=== PATIENT | female | born 2000 | race Two or more races ===

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

== ENCOUNTER 2020-08-05 18:28 | Emergency (ER) | payer OTHER ==
[~2020-08-05] VITALS: Ht 160 cm; Wt 51.3 kg
[2020-08-05] MEDS ORDERED: PEPCID AC20 MG PO (22:05)
== END 2020-08-05 22:25 | disposition home or self-care (01) ==
LOC: EMR PED 18:28
DX: B34.9 Viral infection, unspecified (principal)

== ENCOUNTER 2020-11-08 21:40 | Emergency (ER) | payer OTHER ==
[~2020-11-08] VITALS: Ht 160 cm; Wt 50.3 kg
[~2020-11-08 21:40] MED LIST changes: +PEPCID AC20 MG PO
== END 2020-11-09 00:29 | disposition home or self-care (01) ==
LOC: ER 21:40
DX: R07.89 Other chest pain (principal)

== ENCOUNTER 2021-01-12 19:09 | Emergency (ER) | payer OTHER ==
[~2021-01-12] VITALS: Ht 160 cm; Wt 53.5 kg
[2021-01-12] MEDS ORDERED: ZITHROMAX500 MG PO (20:50)
[2021-01-12] MEDS ORDERED: TUSICOF CAPLET1 EACH PO (20:50)
== END 2021-01-12 21:18 | disposition home or self-care (01) ==
LOC: ER 19:09 → EMR PED 19:09
DX: J06.9 Acute upper respiratory infection, unspecified (principal); Z20.822 Contact with and (suspected) exposure to COVID-19

== ENCOUNTER 2021-03-30 16:14 | Emergency (ER) | payer OTHER ==
[~2021-03-30] VITALS: Ht 160 cm; Wt 54.0 kg
[~2021-03-30 16:14] MED LIST changes: +TUSICOF CAPLET1 EACH PO; +ZITHROMAX500 MG PO
== END 2021-03-30 22:03 | disposition home or self-care (01) ==
LOC: EMR PED 16:14
DX: J32.8 Other chronic sinusitis (principal); R07.89 Other chest pain; J98.8 Other specified respiratory disorders; R51.9 Headache, unspecified; Z11.52 Encounter for screening for COVID-19

== ENCOUNTER 2021-05-17 20:43 | Emergency (ER) | payer OTHER ==
[~2021-05-17] VITALS: Ht 160 cm; Wt 54.0 kg
[2021-05-17] MEDS ORDERED: ZITHROMAX500 MG PO (22:28)
[2021-05-17] MEDS ORDERED: ALLERGY RELIE15.8 ML NASAL (22:28)
== END 2021-05-17 22:45 | disposition home or self-care (01) ==
LOC: ER 20:43 → EMR PED 20:58
DX: R04.0 Epistaxis (principal); J06.9 Acute upper respiratory infection, unspecified; J01.00 Acute maxillary sinusitis, unspecified

== ENCOUNTER 2021-11-15 23:19 | Emergency (ER) | payer OTHER ==
[~2021-11-15] VITALS: Ht 160 cm; Wt 54.9 kg
[~2021-11-15 23:19] MED LIST changes: +ALLERGY RELIE15.8 ML NASAL
[2021-11-16] MEDS ORDERED: KETO10TA2 PO (02:30)
== END 2021-11-16 02:46 | disposition home or self-care (01) ==
LOC: ER 23:19
DX: M94.0 Chondrocostal junction syndrome [Tietze] (principal)

== ENCOUNTER 2021-12-07 03:03 | Emergency (ER) | payer OTHER ==
[~2021-12-07] VITALS: Ht 160 cm; Wt 55.8 kg
[~2021-12-07 03:03] MED LIST changes: +KETO10TA2 PO
== END 2021-12-07 09:13 | disposition home or self-care (01) ==
LOC: ER 03:03
DX: O21.9 Vomiting of pregnancy, unspecified (principal); Z3A.00 Weeks of gestation of pregnancy not specified

== ENCOUNTER 2022-02-06 05:30 | Emergency (ER) | payer OTHER ==
[~2022-02-06] VITALS: Ht 160 cm; Wt 54.9 kg
== END 2022-02-06 10:37 | disposition home or self-care (01) ==
LOC: ER 05:30
DX: N93.9 Abnormal uterine and vaginal bleeding, unspecified (principal); J45.909 Unspecified asthma, uncomplicated; L30.8 Other specified dermatitis; Z91.013 Allergy to seafood

== ENCOUNTER 2022-03-28 12:14 | Inpatient (IN) | payer OTHER ==
[~2022-03-28] VITALS: Ht 160 cm; Wt 58.1 kg
[2022-03-28] MEDS ORDERED: MEDROLPACK PO (18:58)
[2022-03-28] MEDS ORDERED: ZITHROMAX500 MG PO (18:58)
[2022-03-28] MEDS ORDERED: FLONASE ALLERG9.9 ML NASAL (18:58)
== END 2022-04-01 18:33 | disposition home or self-care (01) | DRG 203 ==
LOC: ER 12:14 → SEC-K 03-29 07:53 → MEDI 03-29 07:53
PROVIDERS: ADMIT Internal Medicine; ATTEND Internal Medicine
PROC: 4A12X4Z Monitoring of Cardiac Electrical Activity, External Approach (ICD-10-PCS; principal; 2022-03-29)
DX: J45.901 Unspecified asthma with (acute) exacerbation (principal); R06.02 Shortness of breath; Z20.822 Contact with and (suspected) exposure to COVID-19

== ENCOUNTER 2022-05-01 12:24 | Emergency (ER) | payer OTHER ==
[~2022-05-01] VITALS: Ht 160 cm; Wt 59.0 kg
[~2022-05-01 12:24] MED LIST changes: +FLONASE ALLERG9.9 ML NASAL; +MEDROLPACK PO
== END 2022-05-01 15:40 | disposition home or self-care (01) ==
LOC: ER 12:24 → EMR PED 12:24 → ER 12:29 → EMR PED 12:29 → ER 15:40
DX: B34.8 Other viral infections of unspecified site (principal); E86.0 Dehydration; Z20.828 Contact with and (suspected) exposure to other viral communicable diseases

== ENCOUNTER 2022-05-11 01:29 | Inpatient (IN) | payer OTHER ==
[~2022-05-11] VITALS: Ht 160 cm; Wt 59.0 kg
--- NOTE | 2022-05-11 01:51 | NUR ---
SE RECIBE PTE ALERTA Y ORIENTADA X3, QUIEN REFIERE TENER SANAZ REACCION ALERGICA QUE LE ESTA CAUSANDO UN RASH POR DISTINTAS PARTES DEL CUERPO. SE OBSERVA RASH Y PIEL RESECA. SE KENDRICK S/V Y TEMPERATURA SE ENCUENTRA EN 100.5F. SE LE ADMINISTRAN 2 TYLENOL DE 500MG. PTE ESPERA EN AREA DE FAST TRACK PARA EVALUACION MEDICA.
--- NOTE | 2022-05-11 04:45 | NUR ---
EVALUA PTE. S EDUCA SOBRE TX MEDICO EL CUAL REFIERE COMPRENDER. SE REALIZAN MUESTRAS DE LABORATORIO BAJO MEDIDAS ASEPTICAS. SE ADMINISTRAN MEDICAMENTOS JAZZ ORDEN MEDICA.
--- NOTE | 2022-05-11 08:25 | NUR ---
SE RECIBE PTE MASCULINO DE 21YRS ALERTA CONCIETE Y TRANQUILA . PTE CON IVF'S PATENTE Y ESTRELLA DE EDEMA . SE LE JENA S/V LA CUAL SE DOCUNTA. SE CONSULTA CON EL DR.TORO CEVALLOS.
== END 2022-05-14 23:45 | disposition home or self-care (01) | DRG 607 ==
LOC: ER 01:29 → MEDJ 05-12 01:24
PROVIDERS: ADMIT Internal Medicine; ATTEND Internal Medicine
DX: L30.3 Infective dermatitis (principal); L02.211 Cutaneous abscess of abdominal wall; L02.413 Cutaneous abscess of right upper limb; L01.00 Impetigo, unspecified; B95.62 Methicillin resistant Staphylococcus aureus infection as the cause of diseases classified elsewhere; L08.89 Other specified local infections of the skin and subcutaneous tissue; Z20.822 Contact with and (suspected) exposure to COVID-19

== ENCOUNTER 2022-06-21 17:07 | Emergency (ER) | payer OTHER ==
[~2022-06-21] VITALS: Ht 165.1 cm; Wt 63.5 kg
[2022-06-21] MEDS ORDERED: BACTRIM DS TAB1 EACH PO (18:04)
[2022-06-22] MEDS ORDERED: BACTRIM 400-801 EACH PO (23:22)
[2022-06-22] MEDS ORDERED: DYNA HEX TOP (23:35)
== END 2022-06-21 18:20 | disposition home or self-care (01) ==
LOC: ER 17:07
DX: L02.91 Cutaneous abscess, unspecified (principal); L03.90 Cellulitis, unspecified; Z91.013 Allergy to seafood

== ENCOUNTER 2022-06-22 19:20 | Emergency (ER) | payer OTHER ==
[~2022-06-22] VITALS: Ht 160 cm; Wt 54.0 kg
[~2022-06-22 19:20] MED LIST changes: +BACTRIM DS TAB1 EACH PO
[2022-06-22] MEDS ORDERED: BACTRIM 400-801 EACH PO (23:22)
[2022-06-22] MEDS ORDERED: DYNA HEX TOP (23:35)
== END 2022-06-23 00:05 | disposition home or self-care (01) ==
LOC: ER 19:20
DX: L02.828 Furuncle of other sites (principal); Z91.013 Allergy to seafood

== ENCOUNTER 2022-08-21 13:55 | Emergency (ER) | payer OTHER ==
[~2022-08-21] VITALS: Ht 160 cm; Wt 54.4 kg
[~2022-08-21 13:55] MED LIST changes: +BACTRIM 400-801 EACH PO; +DYNA HEX TOP; +ONDANSETRON ODT4 MG PO; +PEPCID40 MG PO
== END 2022-08-22 06:06 | disposition designated cancer center or children's hospital (05) ==
LOC: ER 13:55
DX: R51.9 Headache, unspecified (principal); H02.844 Edema of left upper eyelid; H57.12 Ocular pain, left eye; R59.0 Localized enlarged lymph nodes; Z91.013 Allergy to seafood

== ENCOUNTER 2022-11-04 13:45 | Emergency (ER) | payer OTHER ==
[~2022-11-04] VITALS: Ht 162.6 cm; Wt 59.4 kg
[2022-11-04] MEDS ORDERED: BACTRIM DS TAB1 EACH PO (23:44)
== END 2022-11-05 00:03 | disposition home or self-care (01) ==
LOC: ER 13:45
DX: N39.0 Urinary tract infection, site not specified (principal); Z91.013 Allergy to seafood; N83.209 Unspecified ovarian cyst, unspecified side

== ENCOUNTER 2023-08-24 15:33 | Emergency (ER) | payer OTHER ==
[~2023-08-24] VITALS: Ht 160 cm; Wt 56.7 kg
[2023-08-24 17:53] LABS: HEMATOCRIT 37.6 % (36.0-45.00); HEMOGLOBIN 12.6 g/dL (12.0-15.00); MEAN CELL VOLUME 87.1 fL (80.00-100.00); MEAN CORPUSCULAR HEMOGLOBIN 29.3 pg (27.00-32.0); MEAN CORPUSCULAR HGB CONC 33.7 g/dl (32.0-36.0); PLATELET COUNT 284 K/uL (150-450); RED BLOOD COUNT 4.31 M/uL (4.00-6.00)
== END 2023-08-24 18:47 | disposition home or self-care (01) ==
LOC: ER 15:34
PROVIDERS: General Practice
DX: J45.909 Unspecified asthma, uncomplicated (principal); Z20.822 Contact with and (suspected) exposure to COVID-19; Z91.013 Allergy to seafood

== ENCOUNTER 2023-12-18 14:51 | Inpatient (IN) | payer OTHER ==
[~2023-12-18] VITALS: Ht 160 cm; Wt 503.5 kg
--- NOTE | 2023-12-18 15:32 | NUR ---
PTE ALERTA Y ORIENTADA X3, SE LE KENDRICK S/V. PTE REFIERE QUE SE ENCONTRABA DE VACACIONES EN REPUBLICA [place]IN[place]. PTE REFIERE QUE INGIRIO ALIMENTO CON INGREDIENTES DE MARISCOS EL CUAL LE CAUSO SANAZ REACCION ALERGICA. SE OBSERVAN AMBOS LABIOS HINCHADOS. PTE REFIERE TENER DIFICULTAD RESPIRATORIA, AL MOMENTO DE TRIAGE SATURACION EN 100%. SE UBICA EN JAYA DE ESPERA.
[2023-12-18] MEDS ORDERED: KETOROLAC TROMETHAMINE 15 MG VIAL IV STA (18:06)
[2023-12-18] MEDS ORDERED: CEFTRIAXONE SODIUM 2,000 MG VIAL IV STA (18:06)
[2023-12-18 18:50] LABS: CALCIUM 9.1 mg/dL (8.5-10.1); CREATININE SERUM 0.61 mg/dL (0.55-1.02); GFR 121.54; POTASSIUM 3.21 mEq/L (3.5-5.1)
[2023-12-18 18:51] LABS: HEMATOCRIT 38.4 % (36.0-45.00); HEMOGLOBIN 12.8 g/dL (12.0-15.00); MEAN CELL VOLUME 87.1 fL (80.00-100.00); MEAN CORPUSCULAR HEMOGLOBIN 29.1 pg (27.00-32.0); MEAN CORPUSCULAR HGB CONC 33.5 g/dl (32.0-36.0); PLATELET COUNT 269 K/uL (150-450); RED BLOOD COUNT 4.41 M/uL (4.00-6.00)
--- NOTE | 2023-12-18 20:36 | NUR ---
PTE EVALAUDO POR DR. HINOJOSA SE JENA MUESTRA BAJO MEDIDAS ASEPTICAS Y SE ADM MEDICAMENTOS JAZZ ORDEN MEDICA Y REFIERE ENTENDER
[2023-12-18] MEDS ORDERED: 0.9 % SODIUM CHLORIDE 1,000 ML IV SCH (22:45)
[2023-12-18] MEDS ORDERED: KETOROLAC TROMETHAMINE 15 MG VIAL IU ONE (22:45)
--- NOTE | 2023-12-18 23:32 | NUR ---
SE RECIBE PTE ALERTA Y ORIENTADA X3 SE COLOCA EN SNEHA Y SE REALIZAN VITALES , RN FAIRBANKS CANALIZA A PTE Y LE COLOCA MEDICACION JAZZ ORDEN MEDICA.
[2023-12-18] MEDS ORDERED: KETOROLAC TROMETHAMINE 15 MG VIAL IU PRN (23:45)
[2023-12-18] MEDS ORDERED: VANCOMYCIN HCL 1,000 MG VIAL IV SCH (23:45)
[2023-12-18] MEDS ORDERED: ONDANSETRON HCL 4 MG in 0.9 % SODIUM CHLORIDE 50 ML IV PRN (23:45)
[2023-12-18] MEDS ORDERED: ACETAMINOPHEN 500 MG GEL..CAP PO PRN (23:45)
[2023-12-18] MEDS ORDERED: FAMOTIDINE/PF 20 MG in 0.9 % SODIUM CHLORIDE 8 ML IV PUSH SCH (23:46)
[2023-12-19] MEDS ORDERED: CEFEPIME HCL 2,000 MG in 0.9 % SODIUM CHLORIDE 100 ML IV SCH (01:00)
[2023-12-19 01:05] LABS: URINE APPEARANCE Cloudy; URINE BILIRRUBIN Negative (NEGATIVE); URINE BLOOD Negative; URINE COLOR Yellow; URINE GLUCOSE Negative (NEGATIVE); URINE LEUKOCYTE Large; URINE NITRATE Negative; URINE PROTEIN Trace (NEGATIVE)
[2023-12-19 01:08] LABS: URINE EPITHELIAL CELLS 77.1 uL (0.0-38.8); URINE RBC 4.8 uL (0.0-20.8); URINE WBC 266.1 uL (0.0-23.2)
[2023-12-19 01:34] LABS: INR 1.04; PARTIAL THROMBOPLASTIN TIME 33.1 SECONDS (22.0-34.0); PROTHROMBIN TIME 10.9 SECONDS (9.0-11.5)
[2023-12-19 01:37] LABS: C-REACTIVE PROTEIN 6.27 MG/DL (0.00-0.29)
[2023-12-19 01:50] LABS: URINE CRYSTALS FEW /HPF; URINE YEAST FEW /hpf
[2023-12-19] MEDS ORDERED: KETOROLAC TROMETHAMINE 30 MG VIAL IU PRN (10:15)
[2023-12-20] MEDS ORDERED: MUPIROCIN 22 GM OINT..GM TUBE TOP SCH (17:00)
[2023-12-20] MEDS ORDERED: CHLORHEXIDINE GLUCONATE 120 ML BOTTLE TOP SCH (17:00)
[2023-12-20] MEDS ORDERED: LINEZOLID 600 MG TABLET PO SCH (21:10)
[2023-12-21 05:16] LABS: HEMOGLOBIN 11.3 g/dL (12.0-15.00); MEAN CELL VOLUME 88.1 fL (80.00-100.00); MEAN CORPUSCULAR HEMOGLOBIN 29.3 pg (27.00-32.0); MEAN CORPUSCULAR HGB CONC 33.3 g/dl (32.0-36.0); PLATELET COUNT 261 K/uL (150-450); RED BLOOD COUNT 3.86 M/uL (4.00-6.00); RED CELL DISTRIBUTION WIDTH 12.8 % (11.5-14.5)
[2023-12-21 05:39] LABS: ALBUMIN 2.6 gm/dL (3.4-5.0); BILIRUBIN TOTAL 0.35 mg/dL (0.3-1.2); CALCIUM 8.3 mg/dL (8.5-10.1); CREATININE SERUM 0.52 mg/dL (0.55-1.02); GFR 146.13; GLOBULINA 2.7 G/DL (2.4-3.5); POTASSIUM 4.08 mEq/L (3.5-5.1); TOTAL PROTEIN 5.3 gm/dL (6.4-8.2)
[2023-12-21 05:43] LABS: C-REACTIVE PROTEIN 1.25 MG/DL (0.00-0.29)
[2023-12-21] MEDS ORDERED: MUPIROCIN 22 GM OINT..GM TUBE TOP SCH (09:00)
[2023-12-22] MEDS ORDERED: ACETAMINOPHEN 500 MG GEL..CAP PO PRN (09:15)
[2024-01-07] MEDS ORDERED: CHLORHEXIDINE GLUCONATE 120 ML BOTTLE TOP SCH (09:00)
== END 2023-12-22 15:23 | disposition home or self-care (01) | DRG 602 ==
LOC: ER 14:52 → MEDI 23:49 → MEDJ 23:49 → MEDI 12-19 03:00
PROVIDERS: General Practice; Student in an Organized Health Care Education/Training Program; ADMIT Internal Medicine; ATTEND Internal Medicine
PROC: BN25ZZZ Computerized Tomography (CT Scan) of Facial Bones (ICD-10-PCS; 2023-12-18)
PROC: 0H91XZZ Drainage of Face Skin, External Approach (ICD-10-PCS; principal; 2023-12-19)
DX: L03.211 Cellulitis of face (principal); A41.9 Sepsis, unspecified organism; R65.10 Systemic inflammatory response syndrome (SIRS) of non-infectious origin without acute organ dysfunction; L02.01 Cutaneous abscess of face; A49.02 Methicillin resistant Staphylococcus aureus infection, unspecified site

== ENCOUNTER 2024-09-26 22:38 | Emergency (ER) | payer OTHER ==
[~2024-09-26] VITALS: Ht 162.6 cm; Wt 59.0 kg
[2024-09-26 23:17] VITALS: BP 105/47; O2SAT 100
[2024-09-27] MEDS ORDERED: HYDROCORTISONE SODIUM SUCC/PF 50 MG/ML ML IV STA (00:32)
[2024-09-27] MEDS ORDERED: FAMOTIDINE/PF 20 MG/2 ML VIAL IV PUSH STA (00:32)
[2024-09-27] MEDS ORDERED: DIPHENHYDRAMINE HCL 50 MG/ML VIAL 1ML IV STA (00:32)
[2024-09-27 01:29] LABS: HEMATOCRIT 42.6 % (36.0-45.00); HEMOGLOBIN 14.3 g/dL (12.0-15.00); MEAN CELL VOLUME 90.1 fL (80.00-100.00); MEAN CORPUSCULAR HEMOGLOBIN 30.3 pg (27.00-32.0); MEAN CORPUSCULAR HGB CONC 33.6 g/dl (32.0-36.0); PLATELET COUNT 245 K/uL (150-450); RED BLOOD COUNT 4.73 M/uL (4.00-6.00); RED CELL DISTRIBUTION WIDTH 12.4 % (11.5-14.5)
[2024-09-27 01:48] LABS: ANION GAP 12 (10.0-20.0); BLOOD UREA NITROGEN 16 mg/dL (7-18); BUN CREA RATIO 25 (7.0-25.0); CALCIUM 9.2 mg/dL (8.5-10.1); CARBON DIOXIDE 25 mEq/L (21-32); CHLORIDE 111 mmol/L (98-107); CREATININE SERUM 0.64 mg/dL (0.55-1.02); GFR 114.99; GLUCOSE FASTING 89 mg/dL (65-100); OSMOLALITY SERUM 287 MOSM/KG (275-295); POTASSIUM 3.86 mEq/L (3.5-5.1); SODIUM 144 mmol/L (136-145)
[2024-09-27 02:02] LABS: HCG QUANTITATIVE < 1 mUI/mL (1-3)
[2024-09-27] MEDS ORDERED: MEDROL8 MG PO (02:45)
[2024-09-27] MEDS ORDERED: ALLEGRA ALLERG180 MG PO (02:45)
== END 2024-09-27 03:02 ==
LOC: ER 22:41
PROVIDERS: General Practice
DX: T78.49XA Other allergy, initial encounter (principal); X58.XXXA Exposure to other specified factors, initial encounter; Z87.09 Personal history of other diseases of the respiratory system; Z91.013 Allergy to seafood

== ENCOUNTER 2024-10-09 08:22 | Emergency (ER) | payer OTHER ==
[~2024-10-09 08:22] MED LIST changes: +ALLEGRA ALLERG180 MG PO; +MEDROL8 MG PO
[2024-10-09] MEDS ORDERED: hydrOXYzine PAMOATE 25 MG CAPSULE PO ONE (10:28)
[2024-10-09] MEDS ORDERED: METHYLPREDNISOLONE SOD SUCC 125 MG VIAL ONE (10:28)
[2024-10-09] MEDS ORDERED: WATER FOR INJ.,BACTERIOSTATIC 30 ML VIAL IJ ONE (10:29)
[2024-10-09 10:53] LABS: HEMATOCRIT 43.4 % (36.0-45.00); HEMOGLOBIN 14.3 g/dL (12.0-15.00); MEAN CELL VOLUME 90.4 fL (80.00-100.00); MEAN CORPUSCULAR HEMOGLOBIN 29.7 pg (27.00-32.0); MEAN CORPUSCULAR HGB CONC 32.8 g/dl (32.0-36.0); PLATELET COUNT 262 K/uL (150-450); RED BLOOD COUNT 4.81 M/uL (4.00-6.00); RED CELL DISTRIBUTION WIDTH 12.5 % (11.5-14.5)
== END 2024-10-09 11:57 | disposition home or self-care (01) ==
LOC: ER 08:24
PROVIDERS: Emergency Medicine
DX: T78.40XA Allergy, unspecified, initial encounter (principal); Z91.013 Allergy to seafood; Z87.09 Personal history of other diseases of the respiratory system; R42 Dizziness and giddiness

== ENCOUNTER 2025-03-07 02:08 | Emergency (ER) | payer OTHER ==
[~2025-03-07] VITALS: Ht 160 cm; Wt 61.2 kg
[2025-03-07] MEDS ORDERED: ONDANSETRON HCL 2 MG/ML VIAL IV STA (03:39)
[2025-03-07] MEDS ORDERED: FAMOTIDINE/PF 20 MG/2 ML VIAL IV PUSH STA (03:39)
[2025-03-07] MEDS ORDERED: ONDANSETRON HCL 2 MG/ML VIAL ONE (03:41)
[2025-03-07] MEDS ORDERED: FAMOTIDINE/PF 20 MG/2 ML VIAL ONE (03:41)
[2025-03-07 04:11] LABS: BASO % 0.4 % (0.1-1.2); EOS # 1.38 (0.04-0.54); EOS % 14.3 % (0.7-7.0); HEMATOCRIT 43.1 % (34.1-44.9); HEMOGLOBIN 14.5 g/dL (11.2-15.7); LYMPH # 2.18 (1.18-3.74); LYMPH % 22.7 % (19.3-53.1); MEAN CORPUSCULAR HEMOGLOBIN 29.4 pg (25.6-32.2); MONO # 0.38 (0.24-0.82); NEUT # 5.63 (1.56-6.13); NEUT % 58.5 % (34.0-71.1); PLATELET COUNT 270 K/uL (163-369); RED BLOOD COUNT 4.94 M/uL (3.93-5.22); RED CELL DISTRIBUTION WIDTH 11.6 % (11.6-14.4)
[2025-03-07 04:36] LABS: AMYLASE 74 U/L (25-115); LIPASE 46 U/L (13-75)
[2025-03-07 04:48] LABS: HCG QUANTITATIVE < 1 mUI/mL (1-3)
[2025-03-07] MEDS ORDERED: ZYRTEC10 MG PO (05:44)
== END 2025-03-07 07:47 ==
LOC: ER 02:08
PROVIDERS: General Practice
DX: R10.13 Epigastric pain (principal); Z91.013 Allergy to seafood

== ENCOUNTER 2025-03-12 03:02 | Emergency (ER) | payer OTHER ==
[~2025-03-12] VITALS: Ht 160 cm; Wt 59.4 kg
[~2025-03-12 03:02] MED LIST changes: +ZYRTEC10 MG PO
[2025-03-12] MEDS ORDERED: DEXAMETHASONE SODIUM PHOSPHATE 4 MG/ML VIAL IM STA (03:32)
[2025-03-12] MEDS ORDERED: DIPHENHYDRAMINE HCL 50 MG CAPSULE PO STA (03:33)
[2025-03-12] MEDS ORDERED: DEXAMETHASONE SODIUM PHOSPHATE 4 MG/ML VIAL ONE (03:34)
[2025-03-12] MEDS ORDERED: DIPHENHYDRAMINE HCL 12.5 MG/5 ML BLIST.PACK PO ONE (03:35)
== END 2025-03-12 03:48 | disposition home or self-care (01) ==
LOC: ER 03:02
DX: L25.9 Unspecified contact dermatitis, unspecified cause (principal); R21 Rash and other nonspecific skin eruption; Z91.013 Allergy to seafood

== ENCOUNTER 2025-06-08 20:03 | Emergency (ER) | payer OTHER ==
[~2025-06-08] VITALS: Ht 154.9 cm; Wt 59.9 kg
[2025-06-08 23:18] LABS: BASO % 0.5 % (0.1-1.2); EOS # 1.24 (0.04-0.54); EOS % 9.6 % (0.7-7.0); LYMPH # 2.54 (1.18-3.74); LYMPH % 19.6 % (19.3-53.1); MEAN PLATELET VOLUME 12.30 fl (9.4-12.4); MONO # 0.81 (0.24-0.82); MONO % 6.2 % (4.7-12.5); NEUT # 8.28 (1.56-6.13); NEUT % 63.8 % (34.0-71.1); RED CELL DISTRIBUTION WIDTH 11.9 % (11.6-14.4)
[2025-06-08] MEDS ORDERED: CEFTRIAXONE SODIUM 1,000 MG VIAL IM STA (23:24)
[2025-06-08] MEDS ORDERED: TRIAMCINOLONE ACETONIDE 40 MG/ML VIAL IM STA (23:24)
[2025-06-08] MEDS ORDERED: CEFTRIAXONE SODIUM 1,000 MG VIAL ONE (23:31)
[2025-06-08] MEDS ORDERED: TRIAMCINOLONE ACETONIDE 40 MG/ML VIAL ONE (23:31)
[2025-06-09 00:12] LABS: COVID-19 AG NEGATIVE (NEGATIVE)
[2025-06-10] MEDS ORDERED: ALBUTEROL2.5 MG/3 M IH (19:18)
[2025-06-10] MEDS ORDERED: BUDESONIDE0.5 MG/2 M IH (19:18)
== END 2025-06-09 00:13 | disposition home or self-care (01) ==
LOC: ER 20:03
PROVIDERS: General Practice
DX: J06.9 Acute upper respiratory infection, unspecified (principal); Z20.822 Contact with and (suspected) exposure to COVID-19; Z91.013 Allergy to seafood

== ENCOUNTER 2025-06-10 15:32 | Emergency (ER) | payer OTHER ==
[~2025-06-10] VITALS: Ht 160 cm; Wt 61.2 kg
[2025-06-10] MEDS ORDERED: METHYLPREDNISOLONE SOD SUCC 40 MG VIAL IM SCH (17:21)
[2025-06-10] MEDS ORDERED: IPRATROPIUM/ALBUTEROL SULFATE 3 ML AMPUL.NEB IH STA (17:21)
[2025-06-10] MEDS ORDERED: METHYLPREDNISOLONE SOD SUCC 40 MG VIAL ONE (17:25)
[2025-06-10 17:50] LABS: BASO % 0.5 % (0.1-1.2); EOS # 1.66 (0.04-0.54); EOS % 12.5 % (0.7-7.0); LYMPH # 2.31 (1.18-3.74); LYMPH % 17.4 % (19.3-53.1); MEAN PLATELET VOLUME 12.10 fl (9.4-12.4); MONO # 0.75 (0.24-0.82); MONO % 5.6 % (4.7-12.5); NEUT # 8.50 (1.56-6.13); NEUT % 63.8 % (34.0-71.1); RED CELL DISTRIBUTION WIDTH 11.8 % (11.6-14.4)
[2025-06-10 18:21] LABS: COVID-19 AG NEGATIVE (NEGATIVE)
[2025-06-10] MEDS ORDERED: IPRATROPIUM/ALBUTEROL SULFATE 3 ML AMPUL.NEB IH ONE (18:34)
[2025-06-10] MEDS ORDERED: BUDESONIDE0.5 MG/2 M IH (19:18)
[2025-06-10] MEDS ORDERED: ALBUTEROL2.5 MG/3 M IH (19:18)
== END 2025-06-10 19:45 | disposition home or self-care (01) ==
LOC: ER 15:32
DX: J45.909 Unspecified asthma, uncomplicated (principal); Z20.822 Contact with and (suspected) exposure to COVID-19; Z91.013 Allergy to seafood

== ENCOUNTER 2025-06-13 21:33 | Emergency (ER) | payer OTHER ==
[~2025-06-13] VITALS: Ht 160 cm; Wt 61.2 kg
[~2025-06-13 21:33] MED LIST changes: +ALBUTEROL2.5 MG/3 M IH; +BUDESONIDE0.5 MG/2 M IH
[2025-06-13] MEDS ORDERED: KETOROLAC TROMETHAMINE 30 MG VIAL ONE ×2 (21:56→22:06)
[2025-06-13] MEDS ORDERED: AMOX-CLAV 875-1 EACH PO (21:56)
[2025-06-13] MEDS ORDERED: CEFTRIAXONE SODIUM 2,000 MG VIAL ONE ×2 (21:57→22:06)
[2025-06-13] MEDS ORDERED: 0.9 % SODIUM CHLORIDE 500 ML IV ONE (22:00)
[2025-06-13] MEDS ORDERED: CEFTRIAXONE SODIUM 2,000 MG VIAL IV ONE (22:00)
[2025-06-13] MEDS ORDERED: KETOROLAC TROMETHAMINE 30 MG VIAL IV ONE (22:00)
[2025-06-13] MEDS ORDERED: GUAIFENESIN 200 MG/10 ML BLIST.PACK PO ONE (22:37)
[2025-06-13] MEDS ORDERED: GUAIFENESIN/DEXTROMETHORPHAN 100MG/10ML BLIST.PACK PO ONE (22:45)
[2025-06-13] MEDS ORDERED: GUAIFEN/DEXTROMETHORPHAN/PE 10 ML BLIST.PACK PO ONE (22:51)
== END 2025-06-13 23:59 | disposition home or self-care (01) ==
LOC: ER 21:33
DX: H66.90 Otitis media, unspecified, unspecified ear (principal); Z91.013 Allergy to seafood

== ENCOUNTER 2025-06-17 19:11 | Emergency (ER) | payer OTHER ==
[~2025-06-17] VITALS: Ht 160 cm; Wt 56.7 kg
[~2025-06-17 19:11] MED LIST changes: +AMOX-CLAV 875-1 EACH PO
[2025-06-17] MEDS ORDERED: CEFTRIAXONE SODIUM 1,000 MG VIAL IV ONE (22:30)
[2025-06-17] MEDS ORDERED: TRAMADOL HCL 50 MG TABLET PO ONE (22:30)
== END 2025-06-18 00:44 | disposition home or self-care (01) ==
LOC: ER 19:11
DX: H66.90 Otitis media, unspecified, unspecified ear (principal); H92.02 Otalgia, left ear; Z91.013 Allergy to seafood